=== PATIENT | female | born 1980 | race African-American/Black ===

== ENCOUNTER 2022-05-26 22:24 | Emergency (ER) | payer MEDICAID, OTHER ==
[~2022-05-26] VITALS: Ht 162.6 cm; Wt 99.6 kg
[2022-05-27] MEDS ORDERED: KETOROLAC 30MG/ML VIAL IM ONE (00:45)
[2022-05-27] MEDS ORDERED: AMOXICILLIN/POTASSIUM CLAVULANATE 875/125MG TAB PO ONE (00:45)
[2022-05-27] MEDS ORDERED: IBUP-2029 MT (00:52)
[2022-05-27] MEDS ORDERED: AMOX1TAB16 MT (00:52)
[2022-05-27 02:19] VITALS: BP 135/79
== END 2022-05-27 02:21 | disposition home or self-care (01) ==
LOC: ER 22:24
DX: H60.392 Other infective otitis externa, left ear (principal); Z86.718 Personal history of other venous thrombosis and embolism; Z79.01 Long term (current) use of anticoagulants
CPT/HCPCS: 81025; 96372; 99283; J1885